=== PATIENT | male | born 1970 | race African-American/Black ===

== ENCOUNTER 2019-08-08 13:05 | Emergency (ER) | payer OTHER, MEDICAID ==
[~2019-08-08] VITALS: Ht 195.6 cm; Wt 136.0 kg
[2019-08-08 13:36] VITALS: BP 148/62
[2019-08-08] MEDS ORDERED: IBUPROFEN 600MG TABLET PO ONE (15:00)
[2019-08-08] MEDS ORDERED: ACETAMINOPHEN 500MG TABLET PO ONE (15:00)
== END 2019-08-08 16:23 | disposition home or self-care (01) ==
LOC: ER 13:05
DX: M25.561 Pain in right knee (principal); M79.645 Pain in left finger(s); M25.512 Pain in left shoulder; M54.9 Dorsalgia, unspecified; F12.10 Cannabis abuse, uncomplicated; V49.88XA Car occupant (driver) (passenger) injured in other specified transport accidents, initial encounter; Y93.89 Activity, other specified; Y92.89 Other specified places as the place of occurrence of the external cause; Y99.8 Other external cause status
CPT/HCPCS: 73030; 73130; 73590; 99284